=== PATIENT | male | born 1950 | race African-American/Black ===

== ENCOUNTER 2021-03-27 11:45 | Inpatient (IN) | payer MEDICARE, MEDICAID ==
[2021-03-27 12:31] LABS: #Monocytes 0.4 10x3/uL (0.0-1.1); #Neutrophils 2.9 10x3/uL (1.5-8.4); %Basophils 0.2 % (0.0-2.0); %Monocytes 9.9 % (0.0-10.0); %Neutrophils 70.4 % (40.0-75.0); Hemoglobin 10.8 g/dL (13.5-17.5); Mean Corpuscular Hemoglobin 26.1 pg (27.0-33.0); Mean Corpuscular Volume 76.8 fl (81.2-95.1); Platelet Count 83 10x3/uL (150-450); RBC Distribution Width 20.1 % (11.5-14.5); Red Blood Cell (RBC) Count 4.14 10x6/uL (4.32-5.72); White Blood Cell (WBC) Count 4.1 10x3/uL (3.5-10.5)
[2021-03-27 12:42] LABS: ALT (SGPT) Less than 6 U/L (8-55); AST (SGOT) 12 U/L (5-34); Albumin 2.6 g/dL (3.4-4.8); Alkaline Phosphatase 62 U/L (40-110); Anion Gap 10 mmol/L (10-20); BUN (Urea Nitrogen) 8 mg/dL (8.4-25.7); Bilirubin, Total 1.8 mg/dL (0.2-1.2); Calc. Creatinine Clearance 0 mL/min (70-130); Calcium 7.3 mg/dL (7.8-10.44); Carbon Dioxide 35 mmol/L (23-31); Chloride 103 mmol/L (98-107); Globulin 3.6 g/dL (2.4-3.5); Glucose 95 mg/dL (83-110); Protein, Total 6.2 g/dL (5.8-8.1); Sodium 145 mmol/L (136-145)
[2021-03-27 12:47] LABS: Potassium 2.6 mmol/L (3.5-5.1)
[2021-03-27 12:57] LABS: D-Dimer Test 1.39 mg/L FEU (0.19-0.50); INR-International Normal Ratio 1.2; PTT 39.1 sec (22.0-33.0); Prothrombin Time 13.5 sec (9.5-12.1)
[2021-03-27 13:11] LABS: Anisocytosis SLIGHT = 6-15 cells (100X) (0-5/hpf); Platelet Morphology Comment Appears Decreased
[2021-03-27] MEDS ORDERED: Dexamethasone 10 MG/ML VIAL ONE (13:24)
[2021-03-27] MEDS ORDERED: Furosemide 40 MG/4 ML VIAL ONE (13:24)
[2021-03-27] MEDS ORDERED: Aspirin Chewable 81 MG TAB ONE (13:24)
[2021-03-27] MEDS ORDERED: Azithromycin 250 MG TAB ONE (13:24)
[2021-03-27] MEDS ORDERED: cefTRIAXone\\ROCEPHIN 2 GM VIAL ONE (13:25)
[2021-03-27] MEDS ORDERED: Potassium Chloride 20 MEQ/100 ML PREMIX BAG ONE (14:43)
[2021-03-27] MEDS ORDERED: Potassium Chloride 20 MEQ TAB ONE (14:43)
[2021-03-27 16:52] LABS: Troponin I 0.018 ng/mL (< 0.028)
[2021-03-27 17:05] LABS: Bilirubin Neg (Negative); Blood, Urine 10 (Negative); Clarity Slightly Cloudy (Clear); Glucose, Urine (Dipstick) Normal (Negative); Ketone, Urine Negative (Negative); Leukocyte 100 (Negative); Nitrite Negative (Negative); Protein, Urine (Dipstick) Negative (Neg-Trace); Specific Gravity, Urine 1.005 (1.002-1.036); Urobilinogen Normal mg/dL (Less than 2)
[2021-03-27 17:44] LABS: Bacteria/HPF 3+ HPF (None Seen); RBC/HPF 0-3 HPF (0-3); Squamous Epithelial 0-3 HPF (0-3)
[2021-03-27] MEDS ORDERED: Ondansetron ODT 4 MG TAB PO PRN (18:40)
[2021-03-27] MEDS ORDERED: Acetaminophen 325 MG TAB PO PRN (18:40)
[2021-03-27] MEDS ORDERED: Dextrose 5% in Water 1,000 ML IV PRN (18:45)
[2021-03-27] MEDS ORDERED: Dextrose 50% Abboject 50 ML SYRINGE SLOW IVP PRN (18:45)
[2021-03-27 19:50] LABS: Actual Bicarbonate (HCO3a) 35.4 mEq/L (22-28); Base Excess (BEa) 9.3 mEq/L (-2.0 to +3.0); CO2 Tension 56.4 mmHg (35.0-45.0); Calcium, Ionized (arterial) 1.01 mmol/L (1.12-1.30); Carboxyhemoglobin (COHb) 0.5 gm% (0.0-3.0); Hemoglobin (Hb) 11.2 g/dL (14.0-18.0); Potassium - ABG Lab 2.6 mmol/L (3.70-5.30); Puncture Site RRA; pH, Arterial 7.42 (7.35-7.45)
[2021-03-27 19:53] LABS: O2 Tension (PaO2), arterial 121.7 mmHg (> 70.0)
[2021-03-27 20:14] LABS: Bilirubin, Total 1.5 mg/dL (0.2-1.2)
[2021-03-27 20:20] LABS: Troponin I Less than 0.010 ng/mL (< 0.028)
[2021-03-27] MEDS ORDERED: Heparin 5,000 UNITS/ML VIAL SC SCH (21:00)
[2021-03-27 21:47] VITALS: BMI 50.3
[2021-03-27] MEDS ORDERED: Famotidine 20 MG TAB PO SCH (22:00)
[2021-03-27] MEDS ORDERED: FLU VACC QS2021-22(65YR UP)/PF 240 MCG/0.7 ML SYRINGE IM ONE (23:00)
[2021-03-28 04:43] LABS: #Monocytes 0.2 10x3/uL (0.0-1.1); #Neutrophils 2.2 10x3/uL (1.5-8.4); %Basophils 0.3 % (0.0-2.0); %Lymphocytes 19.9 % (18.0-47.0); %Monocytes 7.5 % (0.0-10.0); %Neutrophils 71.3 % (40.0-75.0); Hemoglobin 10.1 g/dL (13.5-17.5); Mean Corpuscular HGB CONC 33.9 g/dL (32.0-36.0); Mean Corpuscular Volume 76.6 fl (81.2-95.1); Platelet Count 83 10x3/uL (150-450); RBC Distribution Width 20.1 % (11.5-14.5); Red Blood Cell (RBC) Count 3.89 10x6/uL (4.32-5.72); White Blood Cell (WBC) Count 3.1 10x3/uL (3.5-10.5)
[2021-03-28 04:46] LABS: Anion Gap 15 mmol/L (10-20); BUN (Urea Nitrogen) 10 mg/dL (8.4-25.7); CRP (Inflammatory) 9.57 mg/dL (= or < 0.5); Calc. Creatinine Clearance 251 mL/min (70-130); Calcium 7.4 mg/dL (7.8-10.44); Carbon Dioxide 32 mmol/L (23-31); Chloride 104 mmol/L (98-107); Glucose 123 mg/dL (83-110); Sodium 148 mmol/L (136-145)
[2021-03-28 04:49] LABS: Potassium 2.7 mmol/L (3.5-5.1)
[2021-03-28] MEDS: Potassium Chloride 20 MEQ TAB PO SCH ×2 (05:18→07:40)
[2021-03-28 07:32] LABS: Magnesium 1.1 mg/dL (1.6-2.6)
[2021-03-28] MEDS: Furosemide 100 MG/10 ML VIAL SLOW IVP SCH ×2 (07:40→13:42)
[2021-03-28] MEDS ORDERED: Magnesium Sulfate 2 GM in Sodium Chloride 0.9% 100 ML IVPB SCH (08:15)
[2021-03-28] MEDS ORDERED: Magnesium 2 GM/50 ML 2 GM in Premix Bag 1 BAG IVPB SCH (08:30)
[2021-03-28] MEDS: Enoxaparin Sodium 40 MG/0.4 ML SYRINGE SC SCH (08:59)
[2021-03-28] MEDS: Cholecalciferol 1,000 UNITS (25 MCG) TAB PO SCH ×2 (09:00→09:08)
[2021-03-28] MEDS: Zinc Sulfate 220 MG CAP PO SCH ×2 (09:00→09:08)
[2021-03-28] MEDS: Dexamethasone 4 mg/ml Vial SLOW IVP SCH (09:00)
[2021-03-28] MEDS: Ascorbic Acid 500 mg Chewable Tablet PO SCH ×2 (09:00→09:07)
[2021-03-28] MEDS: Famotidine 20 MG TAB PO SCH ×2 (09:07→22:13)
[2021-03-28] MEDS ORDERED: Communication Order-Pharmacy FS PRN (13:06)
[2021-03-28] MEDS: Potassium Bicarbonate/Cit Ac 20 MEQ TAB PO SCH ×2 (13:42→17:03)
[2021-03-28 15:29] LABS: Magnesium 1.3 mg/dL (1.6-2.6); Potassium 3.3 mmol/L (3.5-5.1)
[2021-03-28] MEDS: Magnesium 2 GM/50 ML 2 GM in Premix Bag 1 BAG IVPB SCH ×2 (17:02→22:12)
[2021-03-28] MEDS: HumaLOG 300 UNITS/3 ML VIAL SC PRN ×2 (17:02→21:37)
[2021-03-29] MEDS: Furosemide 100 MG/10 ML VIAL SLOW IVP SCH ×2 (05:08→14:27)
[2021-03-29] MEDS: HumaLOG 300 UNITS/3 ML VIAL SC PRN ×4 (05:08→20:53)
[2021-03-29 05:39] LABS: Anion Gap 15 mmol/L (10-20); BUN (Urea Nitrogen) 12 mg/dL (8.4-25.7); Calc. Creatinine Clearance 203 mL/min (70-130); Calcium 7.6 mg/dL (7.8-10.44); Carbon Dioxide 34 mmol/L (23-31); Chloride 103 mmol/L (98-107); Glucose 210 mg/dL (83-110); Magnesium 1.7 mg/dL (1.6-2.6); Potassium 3.6 mmol/L (3.5-5.1); Sodium 148 mmol/L (136-145)
[2021-03-29 05:54] LABS: #Monocytes 0.6 10x3/uL (0.0-1.1); #Neutrophils 4.4 10x3/uL (1.5-8.4); %Basophils 0.2 % (0.0-2.0); %Lymphocytes 12.8 % (18.0-47.0); %Monocytes 10.8 % (0.0-10.0); %Neutrophils 74.8 % (40.0-75.0); Hemoglobin 9.9 g/dL (13.5-17.5); Mean Corpuscular HGB CONC 32.9 g/dL (32.0-36.0); Mean Corpuscular Hemoglobin 25.7 pg (27.0-33.0); Mean Corpuscular Volume 77.1 fl (81.2-95.1); Platelet Count 88 10x3/uL (150-450); Red Blood Cell (RBC) Count 3.85 10x6/uL (4.32-5.72); White Blood Cell (WBC) Count 5.6 10x3/uL (3.5-10.5)
[2021-03-29] MEDS: Dexamethasone 4 mg/ml Vial SLOW IVP SCH (08:13)
[2021-03-29] MEDS: Famotidine 20 MG TAB PO SCH ×2 (08:14→21:11)
[2021-03-29] MEDS: Cholecalciferol 1,000 UNITS (25 MCG) TAB PO SCH (08:18)
[2021-03-29] MEDS: Zinc Sulfate 220 MG CAP PO SCH (08:18)
[2021-03-29] MEDS: Ascorbic Acid 500 mg Chewable Tablet PO SCH (08:19)
[2021-03-29] MEDS: Enoxaparin Sodium 40 MG/0.4 ML SYRINGE SC SCH (14:27)
[2021-03-29 14:43] LABS: Actual Bicarbonate (HCO3a) 35.7 mEq/L (22-28); Base Excess (BEa) 10.7 mEq/L (-2.0 to +3.0); CO2 Tension 49.5 mmHg (35.0-45.0); Carboxyhemoglobin (COHb) 0.5 gm% (0.0-3.0); Hemoglobin (Hb) 11.3 g/dL (14.0-18.0); O2 Tension (PaO2), arterial 41.4 mmHg (> 70.0); Potassium - ABG Lab 3.2 mmol/L (3.70-5.30); Puncture Site RRA; pH, Arterial 7.48 (7.35-7.45)
[2021-03-29 14:48] LABS: ALV-art Gradient 181.925 mmHg (0-20)
[2021-03-29 16:51] LABS: Actual Bicarbonate (HCO3a) 37.1 mEq/L (22-28); Base Excess (BEa) 12.7 mEq/L (-2.0 to +3.0); CO2 Tension 46.7 mmHg (35.0-45.0); Carboxyhemoglobin (COHb) 0.2 gm% (0.0-3.0); Hemoglobin (Hb) 11.4 g/dL (14.0-18.0); O2 Tension (PaO2), arterial 50.1 mmHg (> 70.0); Potassium - ABG Lab 3.2 mmol/L (3.70-5.30); Puncture Site LRA; pH, Arterial 7.52 (7.35-7.45)
[2021-03-29 16:55] LABS: ALV-art Gradient 248.025 mmHg (0-20)
[2021-03-30 04:58] LABS: BUN (Urea Nitrogen) 11 mg/dL (8.4-25.7); Calc. Creatinine Clearance 0 mL/min (70-130); Calcium 7.6 mg/dL (7.8-10.44); Glucose 135 mg/dL (83-110)
[2021-03-30 05:05] LABS: Anion Gap 16 mmol/L (10-20); Carbon Dioxide 35 mmol/L (23-31); Chloride 98 mmol/L (98-107); Potassium 3.6 mmol/L (3.5-5.1); Sodium 145 mmol/L (136-145)
[2021-03-30] MEDS: Furosemide 100 MG/10 ML VIAL SLOW IVP SCH ×2 (05:10→14:25)
[2021-03-30 05:53] LABS: #Monocytes 0.7 10x3/uL (0.0-1.1); #Neutrophils 4.2 10x3/uL (1.5-8.4); %Basophils 0.3 % (0.0-2.0); %Lymphocytes 13.6 % (18.0-47.0); %Monocytes 11.9 % (0.0-10.0); %Neutrophils 72.6 % (40.0-75.0); Hemoglobin 10.3 g/dL (13.5-17.5); Mean Corpuscular HGB CONC 33.7 g/dL (32.0-36.0); Mean Corpuscular Hemoglobin 25.9 pg (27.0-33.0); Mean Corpuscular Volume 76.9 fl (81.2-95.1); RBC Distribution Width 19.8 % (11.5-14.5); Red Blood Cell (RBC) Count 3.98 10x6/uL (4.32-5.72); White Blood Cell (WBC) Count 5.8 10x3/uL (3.5-10.5)
[2021-03-30 05:54] LABS: Platelet Count 83 10x3/uL (150-450); Platelet Morphology Comment Appears Decreased
[2021-03-30 06:16] LABS: Lymphocytes 9 % (21-51); Monocytes 10 % (0-10); Reactive Lymphocytes 1 % (0-10)
[2021-03-30] MEDS ORDERED: BARICITINIB 2 MG TAB PO SCH (09:15)
[2021-03-30] MEDS: Zinc Sulfate 220 MG CAP PO SCH (09:23)
[2021-03-30] MEDS: Dexamethasone 4 mg/ml Vial SLOW IVP SCH (09:23)
[2021-03-30] MEDS: Ascorbic Acid 500 mg Chewable Tablet PO SCH (09:23)
[2021-03-30] MEDS: Famotidine 20 MG TAB PO SCH ×2 (09:23→21:04)
[2021-03-30] MEDS: Cholecalciferol 1,000 UNITS (25 MCG) TAB PO SCH (09:24)
[2021-03-30] MEDS: Enoxaparin Sodium 40 MG/0.4 ML SYRINGE SC SCH ×2 (09:24→21:05)
[2021-03-30] MEDS ORDERED: Labetalol HCl 100 MG/20 ML VIAL SLOW IVP PRN (10:59)
[2021-03-30] MEDS ORDERED: Cepastat Lozenges 1 LOZ PO PRN (10:59)
[2021-03-30] MEDS ORDERED: Senokot S 8.6-50 MG TAB PO PRN (10:59)
[2021-03-30] MEDS ORDERED: hydrALAZINE 20 MG/ML VIAL SLOW IVP PRN (10:59)
[2021-03-30] MEDS ORDERED: Amlodipine 5 MG TAB PO SCH (11:15)
[2021-03-30] MEDS: Carvedilol 3.125 MG TAB PO SCH (18:02)
[2021-03-30] MEDS: HumaLOG 300 UNITS/3 ML VIAL SC PRN ×2 (18:03→21:06)
[2021-03-30] MEDS ORDERED: Enoxaparin Sodium 100 MG/ML SYRINGE SC SCH (21:00)
[2021-03-30] MEDS: Enoxaparin Sodium 120 MG/0.8 ML SYRINGE SC SCH (21:04)
[2021-03-31] MEDS: Furosemide 100 MG/10 ML VIAL SLOW IVP SCH ×2 (05:03→15:18)
[2021-03-31] MEDS: HumaLOG 300 UNITS/3 ML VIAL SC PRN ×4 (05:07→21:24)
[2021-03-31 06:17] LABS: BUN (Urea Nitrogen) 11 mg/dL (8.4-25.7); Calc. Creatinine Clearance 0 mL/min (70-130); Calcium 7.6 mg/dL (7.8-10.44); Glucose 136 mg/dL (83-110); Iron 59 ug/dL (65-175); Iron 62 ug/dL (65-175); Iron Binding Capacity, Total 165 mcg/dL (261-462); Iron Binding Capacity, Total 166 mcg/dL (261-462)
[2021-03-31 06:24] LABS: Anion Gap 15 mmol/L (10-20); Carbon Dioxide 38 mmol/L (23-31); Chloride 96 mmol/L (98-107); Potassium 3.7 mmol/L (3.5-5.1); Sodium 145 mmol/L (136-145)
[2021-03-31 07:12] LABS: #Monocytes 0.5 10x3/uL (0.0-1.1); #Neutrophils 2.9 10x3/uL (1.5-8.4); %Basophils 0.2 % (0.0-2.0); %Lymphocytes 22.7 % (18.0-47.0); %Monocytes 11.8 % (0.0-10.0); Hemoglobin 10.2 g/dL (13.5-17.5); Mean Corpuscular HGB CONC 33.3 g/dL (32.0-36.0); Mean Corpuscular Hemoglobin 25.7 pg (27.0-33.0); Mean Corpuscular Volume 77.1 fl (81.2-95.1); Platelet Count 79 10x3/uL (150-450); RBC Distribution Width 19.6 % (11.5-14.5); Red Blood Cell (RBC) Count 3.97 10x6/uL (4.32-5.72); White Blood Cell (WBC) Count 4.5 10x3/uL (3.5-10.5)
[2021-03-31] MEDS: BARICITINIB 2 MG TAB PO SCH (09:30)
[2021-03-31] MEDS: Carvedilol 3.125 MG TAB PO SCH ×2 (09:31→17:26)
[2021-03-31] MEDS: Ascorbic Acid 500 mg Chewable Tablet PO SCH (09:31)
[2021-03-31] MEDS: Zinc Sulfate 220 MG CAP PO SCH (09:31)
[2021-03-31] MEDS: Cholecalciferol 1,000 UNITS (25 MCG) TAB PO SCH (09:31)
[2021-03-31] MEDS: Famotidine 20 MG TAB PO SCH ×2 (09:31→20:28)
[2021-03-31] MEDS: Dexamethasone 4 mg/ml Vial SLOW IVP SCH (09:32)
[2021-03-31] MEDS: Amlodipine 5 MG TAB PO SCH (09:32)
[2021-03-31] MEDS: Enoxaparin Sodium 120 MG/0.8 ML SYRINGE SC SCH ×2 (09:32→20:28)
[2021-03-31] MEDS: Enoxaparin Sodium 40 MG/0.4 ML SYRINGE SC SCH ×2 (09:33→20:28)
[2021-03-31 12:39] LABS: Hemoglobin A1c 5.7 % (4.0-6.0)
[2021-03-31] MEDS: cefTRIAXone\\ROCEPHIN 1 GM in Sodium Chloride 0.9% 100 ML IVPB SCH (19:35)
[2021-04-01] MEDS: Furosemide 100 MG/10 ML VIAL SLOW IVP SCH ×2 (05:31→17:34)
[2021-04-01 05:49] LABS: BUN (Urea Nitrogen) 15 mg/dL (8.4-25.7); Calc. Creatinine Clearance 0 mL/min (70-130); Calcium 7.7 mg/dL (7.8-10.44); Glucose 142 mg/dL (83-110)
[2021-04-01 05:56] LABS: Anion Gap 14 mmol/L (10-20); Carbon Dioxide 38 mmol/L (23-31); Chloride 93 mmol/L (98-107); Potassium 3.1 mmol/L (3.5-5.1); Sodium 142 mmol/L (136-145)
[2021-04-01 06:13] LABS: Hemoglobin 9.9 g/dL (13.5-17.5); MDiff Complete? YES; Mean Corpuscular HGB CONC 33.3 g/dL (32.0-36.0); Mean Corpuscular Hemoglobin 25.7 pg (27.0-33.0); Mean Corpuscular Volume 77.1 fl (81.2-95.1); Platelet Count 81 10x3/uL (150-450); Platelet Morphology Comment Appears Decreased; RBC Distribution Width 19.7 % (11.5-14.5); Red Blood Cell (RBC) Count 3.85 10x6/uL (4.32-5.72); White Blood Cell (WBC) Count 4.5 10x3/uL (3.5-10.5)
[2021-04-01 06:24] LABS: Lymphocytes 28 % (21-51); Monocytes 17 % (0-10); Neutrophil 55 % (42-75)
[2021-04-01 06:26] LABS: Hypochromia MODERATE=16-30 cells (100X) (0-5/hpf)
[2021-04-01] MEDS ORDERED: Potassium Chloride 20 MEQ TAB PO SCH ×2 (08:00→14:00)
[2021-04-01] MEDS: Enoxaparin Sodium 40 MG/0.4 ML SYRINGE SC SCH ×2 (10:04→20:12)
[2021-04-01] MEDS: Enoxaparin Sodium 120 MG/0.8 ML SYRINGE SC SCH ×2 (10:04→20:12)
[2021-04-01] MEDS: Dexamethasone 4 mg/ml Vial SLOW IVP SCH (10:05)
[2021-04-01] MEDS: Ascorbic Acid 500 mg Chewable Tablet PO SCH (10:06)
[2021-04-01] MEDS: Amlodipine 5 MG TAB PO SCH (10:07)
[2021-04-01] MEDS: Zinc Sulfate 220 MG CAP PO SCH (10:07)
[2021-04-01] MEDS: Carvedilol 3.125 MG TAB PO SCH (10:07)
[2021-04-01] MEDS: Cholecalciferol 1,000 UNITS (25 MCG) TAB PO SCH (10:07)
[2021-04-01] MEDS: BARICITINIB 2 MG TAB PO SCH (10:08)
[2021-04-01] MEDS: Famotidine 20 MG TAB PO SCH ×2 (10:08→20:11)
[2021-04-01] MEDS ORDERED: Lisinopril 10 MG TAB PO SCH (14:00)
[2021-04-01 15:05] LABS: Thyroid Stimulating Hormone 0.4009 uIU/mL (0.35-4.94)
[2021-04-01] MEDS: HumaLOG 300 UNITS/3 ML VIAL SC PRN ×2 (17:30→21:12)
[2021-04-01] MEDS: Azithromycin 250 MG TAB PO SCH (17:34)
[2021-04-01] MEDS: Carvedilol 6.25 MG TAB PO SCH (17:34)
[2021-04-01] MEDS: cefTRIAXone\\ROCEPHIN 1 GM in Sodium Chloride 0.9% 100 ML IVPB SCH (19:42)
[2021-04-02 06:10] LABS: BUN (Urea Nitrogen) 17 mg/dL (8.4-25.7); Calc. Creatinine Clearance 221 mL/min (70-130); Calcium 7.8 mg/dL (7.8-10.44); Glucose 136 mg/dL (83-110); Magnesium 1.5 mg/dL (1.6-2.6); Phosphorus 2.8 mg/dL (2.3-4.7)
[2021-04-02] MEDS: Furosemide 100 MG/10 ML VIAL SLOW IVP SCH ×2 (06:17→14:45)
[2021-04-02 06:18] LABS: Anion Gap 14 mmol/L (10-20); Carbon Dioxide 40 mmol/L (23-31); Chloride 93 mmol/L (98-107); Potassium 4.1 mmol/L (3.5-5.1); Sodium 143 mmol/L (136-145)
[2021-04-02 06:24] LABS: #Monocytes 0.7 10x3/uL (0.0-1.1); #Neutrophils 2.8 10x3/uL (1.5-8.4); %Basophils 0.2 % (0.0-2.0); %Monocytes 13.9 % (0.0-10.0); %Neutrophils 58.3 % (40.0-75.0); Hemoglobin 10.2 g/dL (13.5-17.5); Mean Corpuscular HGB CONC 33.4 g/dL (32.0-36.0); Mean Corpuscular Hemoglobin 25.7 pg (27.0-33.0); Mean Corpuscular Volume 76.8 fl (81.2-95.1); Platelet Count 89 10x3/uL (150-450); RBC Distribution Width 19.9 % (11.5-14.5); Red Blood Cell (RBC) Count 3.97 10x6/uL (4.32-5.72); White Blood Cell (WBC) Count 4.9 10x3/uL (3.5-10.5)
[2021-04-02 06:30] LABS: Hypochromia MODERATE=16-30 cells (100X) (0-5/hpf); Macrocytosis SLIGHT = 6-15 cells (100X) (0-5/hpf); Microcytosis SLIGHT = 6-15 cells (100X) (0-5/hpf); Schistocytes SLIGHT = 2-5 cells (100X) (0-1/hpf); Target Cells MODERATE= 6-15 cells (100X) (0-1/hpf)
[2021-04-02 06:31] LABS: Platelet Morphology Comment Appears Decreased
[2021-04-02] MEDS: Enoxaparin Sodium 40 MG/0.4 ML SYRINGE SC SCH ×2 (10:09→20:25)
[2021-04-02] MEDS: Enoxaparin Sodium 120 MG/0.8 ML SYRINGE SC SCH ×2 (10:10→20:25)
[2021-04-02] MEDS: Dexamethasone 4 mg/ml Vial SLOW IVP SCH (10:10)
[2021-04-02] MEDS: Ascorbic Acid 500 mg Chewable Tablet PO SCH (10:10)
[2021-04-02] MEDS: Famotidine 20 MG TAB PO SCH ×2 (10:10→20:25)
[2021-04-02] MEDS: Amlodipine 5 MG TAB PO SCH (10:11)
[2021-04-02] MEDS: BARICITINIB 2 MG TAB PO SCH (10:11)
[2021-04-02] MEDS: Carvedilol 6.25 MG TAB PO SCH (10:11)
[2021-04-02] MEDS: Zinc Sulfate 220 MG CAP PO SCH (10:11)
[2021-04-02] MEDS: Cholecalciferol 1,000 UNITS (25 MCG) TAB PO SCH (10:11)
[2021-04-02] MEDS: Lisinopril 10 MG TAB PO SCH (10:12)
[2021-04-02] MEDS ORDERED: Magnesium 2 GM/50 ML 2 GM in Premix Bag 1 BAG IVPB SCH (14:00)
[2021-04-02 14:12] LABS: T4 5.3 ug/dL (4.87-11.72)
[2021-04-02] MEDS: Azithromycin 250 MG TAB PO SCH (14:45)
[2021-04-02] MEDS: Magnesium 2 GM/50 ML 2 GM in Premix Bag 1 BAG IVPB SCH (14:45)
[2021-04-02] MEDS: Carvedilol 12.5 MG TAB PO SCH (17:06)
[2021-04-02] MEDS: HumaLOG 300 UNITS/3 ML VIAL SC PRN ×2 (17:06→22:02)
[2021-04-02] MEDS: cefTRIAXone\\ROCEPHIN 1 GM in Sodium Chloride 0.9% 100 ML IVPB SCH (17:58)
[2021-04-02] MEDS: Lantus 1000 UNITS/10 ML VIAL SC SCH (22:00)
[2021-04-03 05:39] LABS: BUN (Urea Nitrogen) 20 mg/dL (8.4-25.7); Calc. Creatinine Clearance 231 mL/min (70-130); Glucose 169 mg/dL (83-110); Magnesium 1.9 mg/dL (1.6-2.6)
[2021-04-03 05:46] LABS: Anion Gap 13 mmol/L (10-20); Carbon Dioxide 40 mmol/L (23-31); Chloride 91 mmol/L (98-107); Potassium 3.4 mmol/L (3.5-5.1); Sodium 141 mmol/L (136-145)
[2021-04-03 05:54] LABS: #Monocytes 0.7 10x3/uL (0.0-1.1); #Neutrophils 3.3 10x3/uL (1.5-8.4); %Basophils 0.2 % (0.0-2.0); %Lymphocytes 23.3 % (18.0-47.0); %Monocytes 13.4 % (0.0-10.0); %Neutrophils 62.3 % (40.0-75.0); Mean Corpuscular HGB CONC 34.4 g/dL (32.0-36.0); Mean Corpuscular Hemoglobin 26.4 pg (27.0-33.0); Mean Corpuscular Volume 76.8 fl (81.2-95.1); Red Blood Cell (RBC) Count 3.79 10x6/uL (4.32-5.72); White Blood Cell (WBC) Count 5.3 10x3/uL (3.5-10.5)
[2021-04-03] MEDS: Furosemide 100 MG/10 ML VIAL SLOW IVP SCH ×2 (05:54→14:25)
[2021-04-03 05:55] LABS: Platelet Count 92 10x3/uL (150-450)
[2021-04-03] MEDS: HumaLOG 300 UNITS/3 ML VIAL SC PRN ×3 (05:55→17:04)
[2021-04-03] MEDS ORDERED: Magnesium 2 GM/50 ML 2 GM in Premix Bag 1 BAG IVPB SCH (06:15)
[2021-04-03] MEDS: Enoxaparin Sodium 40 MG/0.4 ML SYRINGE SC SCH ×2 (09:24→19:47)
[2021-04-03] MEDS: Enoxaparin Sodium 120 MG/0.8 ML SYRINGE SC SCH ×2 (09:24→19:48)
[2021-04-03] MEDS: Famotidine 20 MG TAB PO SCH (09:25)
[2021-04-03] MEDS: Ascorbic Acid 500 mg Chewable Tablet PO SCH (09:25)
[2021-04-03] MEDS: Polyethylene Glycol 3350 17 GM Packet PO SCH (09:25)
[2021-04-03] MEDS: Senokot S 8.6-50 MG TAB PO SCH ×2 (09:25→21:27)
[2021-04-03] MEDS: Dexamethasone 4 mg/ml Vial SLOW IVP SCH (09:25)
[2021-04-03] MEDS: Carvedilol 12.5 MG TAB PO SCH ×3 (09:26→19:46)
[2021-04-03] MEDS: Potassium Chloride 20 MEQ TAB PO SCH ×2 (09:26→16:57)
[2021-04-03] MEDS: Zinc Sulfate 220 MG CAP PO SCH (09:26)
[2021-04-03] MEDS: Cholecalciferol 1,000 UNITS (25 MCG) TAB PO SCH (09:26)
[2021-04-03] MEDS: Amlodipine 5 MG TAB PO SCH (09:26)
[2021-04-03] MEDS: Lisinopril 10 MG TAB PO SCH (09:26)
[2021-04-03] MEDS: Azithromycin 250 MG TAB PO SCH (14:25)
[2021-04-03] MEDS: BARICITINIB 2 MG TAB PO SCH (16:57)
[2021-04-03] MEDS: cefTRIAXone\\ROCEPHIN 1 GM in Sodium Chloride 0.9% 100 ML IVPB SCH (17:04)
[2021-04-03] MEDS: Gabapentin 100 MG CAP PO SCH (19:46)
[2021-04-03] MEDS: Atorvastatin Calcium 20 MG TAB PO SCH (19:49)
[2021-04-03] MEDS: Lantus 1000 UNITS/10 ML VIAL SC SCH (20:04)
[2021-04-04] MEDS: Levothyroxine Sodium 50 MCG TAB PO SCH (05:40)
[2021-04-04] MEDS: Furosemide 100 MG/10 ML VIAL SLOW IVP SCH ×2 (05:40→12:56)
[2021-04-04 06:21] LABS: #Monocytes 0.7 10x3/uL (0.0-1.1); #Neutrophils 3.5 10x3/uL (1.5-8.4); %Basophils 0.2 % (0.0-2.0); %Eosinophils 0.2 % (0.0-6.0); %Lymphocytes 24.7 % (18.0-47.0); %Monocytes 11.7 % (0.0-10.0); %Neutrophils 62.3 % (40.0-75.0); Hemoglobin 9.7 g/dL (13.5-17.5); Mean Corpuscular Hemoglobin 26.1 pg (27.0-33.0); Mean Corpuscular Volume 76.8 fl (81.2-95.1); RBC Distribution Width 20.1 % (11.5-14.5); Red Blood Cell (RBC) Count 3.71 10x6/uL (4.32-5.72); White Blood Cell (WBC) Count 5.6 10x3/uL (3.5-10.5)
[2021-04-04 06:22] LABS: Platelet Count 95 10x3/uL (150-450)
[2021-04-04 06:28] LABS: BUN (Urea Nitrogen) 24 mg/dL (8.4-25.7); Calc. Creatinine Clearance 212 mL/min (70-130); Calcium 8.2 mg/dL (7.8-10.44); Glucose 128 mg/dL (83-110); Magnesium 2.1 mg/dL (1.6-2.6)
[2021-04-04 06:34] LABS: ALT (SGPT) 20 U/L (8-55); AST (SGOT) 19 U/L (5-34); Albumin 2.7 g/dL (3.4-4.8); Alkaline Phosphatase 58 U/L (40-110); Bilirubin, Direct 0.3 mg/dL (0.1-0.3); Bilirubin, Total 0.6 mg/dL (0.2-1.2); Protein, Total 6.2 g/dL (5.8-8.1)
[2021-04-04 06:35] LABS: Anion Gap 14 mmol/L (10-20); Carbon Dioxide 40 mmol/L (23-31); Chloride 94 mmol/L (98-107); Phosphorus 3.7 mg/dL (2.3-4.7); Potassium 4.4 mmol/L (3.5-5.1); Sodium 144 mmol/L (136-145)
[2021-04-04] MEDS: Dexamethasone 4 mg/ml Vial SLOW IVP SCH (08:38)
[2021-04-04] MEDS: Amlodipine 5 MG TAB PO SCH (08:38)
[2021-04-04] MEDS: Carvedilol 12.5 MG TAB PO SCH ×2 (08:38→19:42)
[2021-04-04] MEDS: Enoxaparin Sodium 120 MG/0.8 ML SYRINGE SC SCH ×2 (08:38→19:45)
[2021-04-04] MEDS: Polyethylene Glycol 3350 17 GM Packet PO SCH (08:38)
[2021-04-04] MEDS: Potassium Chloride 20 MEQ TAB PO SCH (08:38)
[2021-04-04] MEDS: Senokot S 8.6-50 MG TAB PO SCH (08:38)
[2021-04-04] MEDS: Enoxaparin Sodium 40 MG/0.4 ML SYRINGE SC SCH ×2 (08:38→19:44)
[2021-04-04] MEDS: Zinc Sulfate 220 MG CAP PO SCH (08:39)
[2021-04-04] MEDS: Cholecalciferol 1,000 UNITS (25 MCG) TAB PO SCH (08:39)
[2021-04-04] MEDS: Lisinopril 10 MG TAB PO SCH (08:39)
[2021-04-04] MEDS: Spironolactone 25 MG TAB PO SCH (08:39)
[2021-04-04] MEDS: Gabapentin 100 MG CAP PO SCH ×3 (08:39→19:42)
[2021-04-04] MEDS: Ascorbic Acid 500 mg Chewable Tablet PO SCH (08:39)
[2021-04-04] MEDS: HumaLOG 300 UNITS/3 ML VIAL SC PRN ×2 (14:14→16:42)
[2021-04-04] MEDS: Azithromycin 250 MG TAB PO SCH (16:04)
[2021-04-04] MEDS: BARICITINIB 2 MG TAB PO SCH (16:04)
[2021-04-04] MEDS: cefTRIAXone\\ROCEPHIN 1 GM in Sodium Chloride 0.9% 100 ML IVPB SCH (17:02)
[2021-04-04] MEDS: Atorvastatin Calcium 20 MG TAB PO SCH (19:43)
[2021-04-04] MEDS: Lantus 1000 UNITS/10 ML VIAL SC SCH (19:43)
[2021-04-05] MEDS: Senokot S 8.6-50 MG TAB PO SCH ×2 (06:13→09:48)
[2021-04-05 06:35] LABS: #Monocytes 0.8 10x3/uL (0.0-1.1); #Neutrophils 3.5 10x3/uL (1.5-8.4); %Basophils 0.2 % (0.0-2.0); %Eosinophils 0.5 % (0.0-6.0); %Lymphocytes 28.5 % (18.0-47.0); %Monocytes 12.5 % (0.0-10.0); %Neutrophils 56.8 % (40.0-75.0); Hemoglobin 9.5 g/dL (13.5-17.5); Mean Corpuscular HGB CONC 33.7 g/dL (32.0-36.0); Mean Corpuscular Hemoglobin 26.2 pg (27.0-33.0); Mean Corpuscular Volume 77.7 fl (81.2-95.1); Mean Platelet Volume 10.8 fl (7.4-10.4); Platelet Count 97 10x3/uL (150-450); RBC Distribution Width 20.4 % (11.5-14.5); Red Blood Cell (RBC) Count 3.63 10x6/uL (4.32-5.72); White Blood Cell (WBC) Count 6.1 10x3/uL (3.5-10.5)
[2021-04-05 06:55] LABS: Phosphorus 3.9 mg/dL (2.3-4.7)
[2021-04-05 06:56] LABS: Anion Gap 15 mmol/L (10-20); BUN (Urea Nitrogen) 29 mg/dL (8.4-25.7); Calc. Creatinine Clearance 206 mL/min (70-130); Calcium 8.3 mg/dL (7.8-10.44); Carbon Dioxide 35 mmol/L (23-31); Chloride 97 mmol/L (98-107); Glucose 101 mg/dL (83-110); Magnesium 2.1 mg/dL (1.6-2.6); Potassium 4.4 mmol/L (3.5-5.1); Sodium 143 mmol/L (136-145)
[2021-04-05] MEDS: Furosemide 100 MG/10 ML VIAL SLOW IVP SCH ×2 (07:24→16:35)
[2021-04-05] MEDS: Levothyroxine Sodium 50 MCG TAB PO SCH (07:24)
[2021-04-05] MEDS ORDERED: Enoxaparin Sodium 40 MG/0.4 ML SYRINGE ONE (09:44)
[2021-04-05] MEDS: Gabapentin 100 MG CAP PO SCH ×3 (09:45→21:29)
[2021-04-05] MEDS: Spironolactone 25 MG TAB PO SCH (09:45)
[2021-04-05] MEDS: Ascorbic Acid 500 mg Chewable Tablet PO SCH (09:45)
[2021-04-05] MEDS: Zinc Sulfate 220 MG CAP PO SCH (09:45)
[2021-04-05] MEDS: Cholecalciferol 1,000 UNITS (25 MCG) TAB PO SCH (09:45)
[2021-04-05] MEDS: Dexamethasone 4 mg/ml Vial SLOW IVP SCH (09:46)
[2021-04-05] MEDS: Enoxaparin Sodium 120 MG/0.8 ML SYRINGE SC SCH ×2 (09:46→21:30)
[2021-04-05] MEDS: Lisinopril 10 MG TAB PO SCH (09:46)
[2021-04-05] MEDS: Carvedilol 12.5 MG TAB PO SCH ×2 (09:46→21:30)
[2021-04-05] MEDS: Enoxaparin Sodium 40 MG/0.4 ML SYRINGE SC SCH ×2 (09:47→21:30)
[2021-04-05] MEDS: Polyethylene Glycol 3350 17 GM Packet PO SCH (09:48)
[2021-04-05] MEDS: Amlodipine 5 MG TAB PO SCH (09:51)
[2021-04-05] MEDS: Azithromycin 250 MG TAB PO SCH (16:35)
[2021-04-05] MEDS: BARICITINIB 2 MG TAB PO SCH (16:37)
[2021-04-05] MEDS: cefTRIAXone\\ROCEPHIN 1 GM in Sodium Chloride 0.9% 100 ML IVPB SCH (16:43)
[2021-04-05] MEDS: HumaLOG 300 UNITS/3 ML VIAL SC PRN (17:48)
[2021-04-05] MEDS: Atorvastatin Calcium 20 MG TAB PO SCH (21:30)
[2021-04-05] MEDS: Lantus 1000 UNITS/10 ML VIAL SC SCH (21:30)
[2021-04-06 04:56] LABS: #Monocytes 0.8 10x3/uL (0.0-1.1); #Neutrophils 3.4 10x3/uL (1.5-8.4); %Basophils 0.2 % (0.0-2.0); %Eosinophils 0.2 % (0.0-6.0); %Lymphocytes 24.8 % (18.0-47.0); %Monocytes 14.1 % (0.0-10.0); %Neutrophils 59.8 % (40.0-75.0); Mean Corpuscular HGB CONC 34.2 g/dL (32.0-36.0); Mean Corpuscular Hemoglobin 26.4 pg (27.0-33.0); Mean Corpuscular Volume 77.1 fl (81.2-95.1); Platelet Count 113 10x3/uL (150-450); RBC Distribution Width 20.9 % (11.5-14.5); Red Blood Cell (RBC) Count 3.41 10x6/uL (4.32-5.72); White Blood Cell (WBC) Count 5.6 10x3/uL (3.5-10.5)
[2021-04-06 05:06] LABS: BUN (Urea Nitrogen) 31 mg/dL (8.4-25.7); Calc. Creatinine Clearance 203 mL/min (70-130); Glucose 113 mg/dL (83-110); Magnesium 2.1 mg/dL (1.6-2.6)
[2021-04-06 05:07] LABS: Phosphorus 4.1 mg/dL (2.3-4.7)
[2021-04-06 05:14] LABS: Anion Gap 14 mmol/L (10-20); Carbon Dioxide 37 mmol/L (23-31); Chloride 96 mmol/L (98-107); Potassium 4.1 mmol/L (3.5-5.1); Sodium 143 mmol/L (136-145)
[2021-04-06] MEDS: Furosemide 100 MG/10 ML VIAL SLOW IVP SCH ×2 (07:31→14:59)
[2021-04-06] MEDS: Senokot S 8.6-50 MG TAB PO SCH ×3 (07:31→23:11)
[2021-04-06] MEDS: Levothyroxine Sodium 50 MCG TAB PO SCH (07:31)
[2021-04-06] MEDS: Polyethylene Glycol 3350 17 GM Packet PO SCH (08:10)
[2021-04-06] MEDS: Zinc Sulfate 220 MG CAP PO SCH (08:11)
[2021-04-06] MEDS: Ascorbic Acid 500 mg Chewable Tablet PO SCH (08:11)
[2021-04-06] MEDS: Spironolactone 25 MG TAB PO SCH (08:11)
[2021-04-06] MEDS: Cholecalciferol 1,000 UNITS (25 MCG) TAB PO SCH (08:12)
[2021-04-06] MEDS: Lisinopril 10 MG TAB PO SCH (08:12)
[2021-04-06] MEDS: Dexamethasone 4 mg/ml Vial SLOW IVP SCH (08:12)
[2021-04-06] MEDS: Enoxaparin Sodium 40 MG/0.4 ML SYRINGE SC SCH ×2 (08:19→21:51)
[2021-04-06] MEDS: Enoxaparin Sodium 120 MG/0.8 ML SYRINGE SC SCH ×2 (08:19→21:51)
[2021-04-06] MEDS: Gabapentin 100 MG CAP PO SCH ×3 (08:20→21:49)
[2021-04-06] MEDS: Amlodipine 10 MG TAB PO SCH (08:20)
[2021-04-06] MEDS: Carvedilol 12.5 MG TAB PO SCH ×2 (08:20→21:50)
[2021-04-06] MEDS: cefTRIAXone\\ROCEPHIN 1 GM in Sodium Chloride 0.9% 100 ML IVPB SCH (17:02)
[2021-04-06] MEDS: HumaLOG 300 UNITS/3 ML VIAL SC PRN ×2 (17:02→22:02)
[2021-04-06] MEDS: BARICITINIB 2 MG TAB PO SCH (17:02)
[2021-04-06] MEDS: Atorvastatin Calcium 20 MG TAB PO SCH (21:50)
[2021-04-06] MEDS: Lantus 1000 UNITS/10 ML VIAL SC SCH (22:01)
[2021-04-07 05:07] LABS: ALT (SGPT) 31 U/L (8-55); AST (SGOT) 18 U/L (5-34); Albumin 2.5 g/dL (3.4-4.8); Alkaline Phosphatase 53 U/L (40-110); Bilirubin, Direct 0.3 mg/dL (0.1-0.3); Bilirubin, Total 0.5 mg/dL (0.2-1.2); Protein, Total 5.4 g/dL (5.8-8.1)
[2021-04-07 05:16] LABS: Phosphorus 4.6 mg/dL (2.3-4.7)
[2021-04-07] MEDS: Furosemide 100 MG/10 ML VIAL SLOW IVP SCH (06:12)
[2021-04-07] MEDS: Levothyroxine Sodium 50 MCG TAB PO SCH (06:12)
[2021-04-07] MEDS: Enoxaparin Sodium 40 MG/0.4 ML SYRINGE SC SCH (08:16)
[2021-04-07] MEDS: Enoxaparin Sodium 120 MG/0.8 ML SYRINGE SC SCH (08:16)
[2021-04-07] MEDS: Gabapentin 100 MG CAP PO SCH (08:16)
[2021-04-07] MEDS: Lisinopril 10 MG TAB PO SCH (08:16)
[2021-04-07] MEDS: Ascorbic Acid 500 mg Chewable Tablet PO SCH (08:16)
[2021-04-07] MEDS: Cholecalciferol 1,000 UNITS (25 MCG) TAB PO SCH (08:16)
[2021-04-07] MEDS: Amlodipine 10 MG TAB PO SCH (08:16)
[2021-04-07] MEDS: Polyethylene Glycol 3350 17 GM Packet PO SCH ×2 (08:17→09:04)
[2021-04-07] MEDS: Carvedilol 12.5 MG TAB PO SCH (08:18)
[2021-04-07] MEDS: Zinc Sulfate 220 MG CAP PO SCH (08:18)
[2021-04-07] MEDS: Spironolactone 25 MG TAB PO SCH (08:18)
[2021-04-07] MEDS: Senokot S 8.6-50 MG TAB PO SCH ×2 (08:51→09:04)
[2021-04-07] MEDS ORDERED: Furosemide 40 MG TAB PO SCH (09:00)
[2021-04-07 11:56] VITALS: BP 97/46; TEMP 97.2
== END 2021-04-07 13:58 | DRG 177 ==
LOC: CSHERS 11:45 → CSHIMCU 20:53 → CSHTELE 03-28 21:23
PROVIDERS: ADMIT Family Medicine; ATTEND Family Medicine
PROC: 8E0ZXY6 Isolation (ICD-10-PCS; 2021-03-27)
PROC: 5A09357 Assistance with Respiratory Ventilation, Less than 24 Consecutive Hours, Continuous Positive Airway Pressure (ICD-10-PCS; 2021-03-27)
PROC: 3E0333Z Introduction of Anti-inflammatory into Peripheral Vein, Percutaneous Approach (ICD-10-PCS; 2021-03-28)
PROC: XW0DXM6 Introduction of Baricitinib into Mouth and Pharynx, External Approach, New Technology Group 6 (ICD-10-PCS; principal; 2021-03-30)
DX: U07.1 COVID-19 (principal); J12.82 Pneumonia due to coronavirus disease 2019; J96.01 Acute respiratory failure with hypoxia; J96.02 Acute respiratory failure with hypercapnia; I50.23 Acute on chronic systolic (congestive) heart failure; J18.9 Pneumonia, unspecified organism; Z68.42 Body mass index [BMI] 45.0-49.9, adult; I48.91 Unspecified atrial fibrillation; E11.51 Type 2 diabetes mellitus with diabetic peripheral angiopathy without gangrene; E03.9 Hypothyroidism, unspecified; E66.01 Morbid (severe) obesity due to excess calories; F17.210 Nicotine dependence, cigarettes, uncomplicated; E87.6 Hypokalemia; E83.42 Hypomagnesemia; E80.6 Other disorders of bilirubin metabolism; I27.21 Secondary pulmonary arterial hypertension; F41.9 Anxiety disorder, unspecified; Z89.511 Acquired absence of right leg below knee
CPT/HCPCS: 36415; 36416; 36600; 71045; 71250; 80048; 80053; 80076; 81003; 81015; 82247; 82607; 82746; 82805; 83036; 83540; 83550; 83605; 83735; 83880; 84100; 84436; 84443; 84484; 85025; 85379; 85610; 85730; 86140; 87040; 87077; 87086; 87186; 93005; 93010; 93306; 94660; 94760; 96374; 96375; J0696; J1100; J1650; J1815; J1940; J3475; J3480; J3490

== ENCOUNTER 2021-04-10 17:39 | Emergency (ER) | payer MEDICAID, MEDICARE ==
[~2021-04-10 17:39] MED LIST: Atropine Sulfate 1 mg/10 ml Syringe ONE; DOPamine/D5W 400 mg/250 ml PREMIX ONE; EPINEPHrine 1 MG/10 ML Abboject SYRINGE ONE
[2021-04-10] MEDS ORDERED: Lidocaine 1% (PF) 30 ML VIAL ONE (18:13)
[2021-04-10] MEDS ORDERED: Ondansetron PF 4 MG/2 ML Vial ONE (18:13)
[2021-04-10] MEDS ORDERED: Heparin 10,000 UNITS/ 10 ML VIAL ONE (18:13)
[2021-04-10] MEDS ORDERED: Nitroglycerin 50 MG/250 ML BOT 0 ML ONE (18:13)
[2021-04-10] MEDS ORDERED: Fentanyl 100 MCG/2 ML VIAL ONE (18:14)
[2021-04-10] MEDS ORDERED: Adenosine 6 MG/2 ML VIAL ONE (18:14)
[2021-04-10] MEDS ORDERED: Midazolam HCl 2 mg/2 ml Vial ONE (18:15)
[2021-04-10 18:36] LABS: ALT (SGPT) 21 U/L (8-55); AST (SGOT) 18 U/L (5-34); Albumin 2.6 g/dL (3.4-4.8); Alkaline Phosphatase 54 U/L (40-110); Anion Gap 20 mmol/L (10-20); BUN (Urea Nitrogen) 31 mg/dL (8.4-25.7); Bilirubin, Total 1.4 mg/dL (0.2-1.2); Calc. Creatinine Clearance 0 mL/min (70-130); Calcium 8.1 mg/dL (7.8-10.44); Carbon Dioxide 23 mmol/L (23-31); Chloride 105 mmol/L (98-107); Glucose 93 mg/dL (83-110); Protein, Total 5.6 g/dL (5.8-8.1); Sodium 144 mmol/L (136-145)
[2021-04-10 18:59] LABS: #Monocytes 1.7 10x3/uL (0.0-1.1); #Neutrophils 11.5 10x3/uL (1.5-8.4); %Basophils 0.1 % (0.0-2.0); %Eosinophils 0.2 % (0.0-6.0); %Lymphocytes 10.7 % (18.0-47.0); %Monocytes 11.1 % (0.0-10.0); %Neutrophils 77.2 % (40.0-75.0); CKMB 1.7 ng/mL (0-6.6); Hemoglobin 4.7 g/dL (13.5-17.5); Mean Corpuscular HGB CONC 32.9 g/dL (32.0-36.0); Mean Corpuscular Hemoglobin 27.5 pg (27.0-33.0); Mean Corpuscular Volume 83.6 fl (81.2-95.1); Mean Platelet Volume 10.9 fl (7.4-10.4); Platelet Count 189 10x3/uL (150-450); RBC Distribution Width 23.9 % (11.5-14.5); Red Blood Cell (RBC) Count 1.71 10x6/uL (4.32-5.72); White Blood Cell (WBC) Count 14.9 10x3/uL (3.5-10.5)
[2021-04-10 19:21] LABS: INR-International Normal Ratio 1.2; PTT 23.8 sec (22.0-33.0); Prothrombin Time 12.9 sec (9.5-12.1)
== END 2021-04-10 18:29 | disposition expired ==
LOC: CSHERS 17:39
DX: I21.19 ST elevation (STEMI) myocardial infarction involving other coronary artery of inferior wall (principal); E78.5 Hyperlipidemia, unspecified; I10 Essential (primary) hypertension; I48.91 Unspecified atrial fibrillation; I73.9 Peripheral vascular disease, unspecified
CPT/HCPCS: 36140; 36415; 36556; 71045; 80053; 82553; 84484; 85025; 85610; 85730; 93005; 93010; 94760; J0153; J0171; J0461; J1265; J1644; J2001; J2250; J2405; J3010